=== PATIENT | male | born 1975 | race Caucasian/White ===

== ENCOUNTER 2019-07-31 20:12 | Emergency (ER) | payer OTHER ==
[~2019-07-31] VITALS: Ht 172.7 cm; Wt 86.6 kg
[2019-07-31] MEDS ORDERED: METFORMIN HCL500 MG (20:24)
[2019-07-31] MEDS ORDERED: LISINOPRIL10 MG (20:24)
[2019-07-31] MEDS ORDERED: ZANTAC 150MG T150 MG (20:24)
[2019-07-31] MEDS ORDERED: KEFLEX500 M1 PO (21:01)
[2019-07-31 21:08] VITALS: BP 140/75
== END 2019-07-31 21:09 | disposition home or self-care (01) ==
LOC: M.ERS 20:12
DX: S61.012A Laceration without foreign body of left thumb without damage to nail, initial encounter (principal); I10 Essential (primary) hypertension; E11.9 Type 2 diabetes mellitus without complications; W26.8XXA Contact with other sharp object(s), not elsewhere classified, initial encounter; Y92.89 Other specified places as the place of occurrence of the external cause; Y93.89 Activity, other specified; Y99.8 Other external cause status